=== PATIENT | female | born 1955 | race Caucasian/White ===

== ENCOUNTER 2018-05-26 12:54 | Day surgery (SDC) | payer OTHER ==
[2018-05-26] MEDS ORDERED: FENTAnyl 50 MCG/ML VIAL (15:12)
[2018-05-26] MEDS ORDERED: PROPOFOL 20 ML (15:12)
== END 2018-05-26 17:13 | disposition home or self-care (01) ==
LOC: GIL 12:54
DX: Z12.11 Encounter for screening for malignant neoplasm of colon (principal); D12.3 Benign neoplasm of transverse colon; K57.30 Diverticulosis of large intestine without perforation or abscess without bleeding; E11.9 Type 2 diabetes mellitus without complications; I10 Essential (primary) hypertension
CPT/HCPCS: 45380; 82962; 88305